=== PATIENT | female | born 1995 | race Caucasian/White ===

== ENCOUNTER → 2021-07-03 08:16 | Outpatient (CLI) | payer OTHER, SELFPAY ==
--- NOTE | 2021-07-03 08:17 | DI.US.S_ITS ---
PROCEDURE: US OB <= 14 WEEKS FETUS INDICATIONS: DATING OUTSIDE/PRIOR DATING DATA: Last menstrual period (LMP): 04/29/2021. LMP-based estimated date of delivery (FRANCISCA): 02/03/2022. First dating scan (date and location): 07/03/2021. Estimated date of delivery (FRANCISCA) from first dating scan: 02/16/2022. The calculations are made using the ultrasound generator FRANCISCA of 02/16/2022. TECHNIQUE: Real-time scanning was performed of the fetus and maternal pelvic organs, with image documentation. Endovaginal scanning was also performed to better visualize the fetus and maternal ovaries. COMPARISON: None. FINDINGS: Embryo: [place]-rump length of 1.2 centimeters corresponding to gestational age of 7 weeks 3 days. Heart rate: 147 beats per minute Maternal organs: Ovaries normal. Probable corpus luteum cyst in the left ovary. Comment: Yolk sac noted. No perigestational hemorrhage identified. IMPRESSION: Single live intrauterine gestation with estimated ultrasound age of 7 weeks 3 days. We strive to produce accurate, complete, and clear reports of imaging services. To assist us in improving patient care, this report was composed using standard report templates and voice recognition software. Therefore, it may contain abnormal punctuation, insertions and/or omissions. Occasional wrong-word or sound-alike substitutions may occur. Though we review the report and make efforts to correct it, we do recommend that the report be read carefully in proper context to recognize any text inaccuracies. Dictated by: Freddie James M.D. on 07/03/2021 at 9:05 Approved by: Freddie James M.D. on 07/03/2021 at 9:06
[2021-07-03 12:26] LABS: Add Manual Diff / Slide Review NO; Basophils Absolute Auto 0 /uL (0-100); Basophils Percent Auto 0.4 % (0-2); Eosinophils Absolute Auto 100 /uL (0-450); Eosinophils Percent Auto 1.6 % (2-4); Hematocrit 31.2 % (36-46); Lymphocytes Absolute Auto 1300 /uL (1100-4500); Mean Corpuscular Hemoglobin 24.4 PG (26-34); Mean Corpuscular Volume 76.3 fL (80-100); Monocytes Absolute Auto 400 /uL (0-900); Monocytes Percent Auto 6.2 % (3-14); Neutrophils Absolute Auto 5000 /uL (1500-7000); Neutrophils Percent Auto 72.8 % (50-75); Platelet Count 324 X10^3/uL (150-400); Red Blood Cell Count 4.09 X10^6/uL (4.0-5.2); Red Cell Distribution Width 17.8 % (11.6-14.8); White Blood Cell Count 6.9 X10^3/uL (4.5-11.0)
[2021-07-03 13:24] LABS: Appearance Urine UA CLEAR; Bilirubin Urine UA NEGATIVE (NEGATIVE); Glucose Urine UA NEGATIVE (Negative); Ketones Urine UA NEGATIVE (NEGATIVE); Leukocyte Esterase Urine UA NEGATIVE (NEGATIVE); Nitrite Urine UA NEGATIVE (Negative); Occult Blood Urine UA NEGATIVE (Negative); Protein Urine UA NEGATIVE (Negative); Specific Gravity Urine UA <=1.005 (1.000-1.035); Urobilinogen Urine UA 0.2 E.U./dL (0.2)
[2021-07-03 13:26] LABS: Color Urine UA Straw; pH Urine UA 6.5 (4.5-8.0)
[2021-07-03 13:55] LABS: Free T4, Direct Thyroxine 1.19 ng/dL (0.78-2.19)
[2021-07-03 14:09] LABS: Thyroid Stimulating Hormone 1.83 uIU/mL (0.47-4.68)
[2021-07-03 14:41] LABS: HCG Quantitative /Beta subunit 48994 mIU/mL
[2021-07-03 18:34] LABS: Hepatitis B Surface Antigen NEGATIVE s/c (NEGATIVE)
[2021-07-03 18:50] LABS: HIV 1 & 2 Ab/Ag 4th Gen Combo NEGATIVE (NEGATIVE); Hep C Virus Ab w/Reflex Quant NEGATIVE s/c (NEGATIVE)
[2021-07-04 09:00] LABS: RPR Screen Non Reactive (Non Reactive)
[2021-07-04 10:41] LABS: Varicella IgG Antibody 1064 index (Immune >165)
== END ==
PROVIDERS: Referring Provider Obstetrics & Gynecology; Visit Provider Obstetrics & Gynecology
DX: Z34.91 Encounter for supervision of normal pregnancy, unspecified, first trimester (principal); Z36.87 Encounter for antenatal screening for uncertain dates; Z3A.01 Less than 8 weeks gestation of pregnancy
CPT/HCPCS: 36415; 76801; 76817; 80055; 81003; 84439; 84443; 84702; 86787; 86803; 86850; 86900; 86901; 87086; 87389

== ENCOUNTER 2021-08-11 10:35 | Emergency (ER) | payer OTHER, SELFPAY ==
[2021-08-11] VITALS (15 sets, daily range): BP systolic 90–108; BP diastolic 54–71; PULSE 64–89; RESP 14–17; TEMP 36.6; O2SAT 97–100; BMI 33.6
--- NOTE | 2021-08-11 10:41 | DI.US.S_ITS ---
PROCEDURE: US OB <= 14 WEEKS FETUS INDICATIONS: AB IN PROGRESS OUTSIDE/PRIOR DATING DATA: Last menstrual period (LMP): April 29, 2021 LMP-based estimated date of delivery (FRANCISCA): February 03, 2022 First dating scan (date and location): July 03, 2020 Estimated date of delivery (FRANCISCA) from first dating scan: February 16, 2022 The calculations are made using the ultrasound FRANCISCA of February 16, 2022. TECHNIQUE: Real-time scanning was performed of the fetus and maternal pelvic organs, with image documentation. Endovaginal scanning was also performed to better visualize the fetus and maternal ovaries. COMPARISON: [facility], , OB <= 14 WEEKS FETUS, 07/03/2021, 8:39. FINDINGS: Embryo: No intrauterine identified in the current study. Heart rate: Not identified. Maternal organs: Probable left corpus luteal cyst. Endometrium is thickened to 6 centimeters. Doppler evaluation demonstrates no definite vascularity in the thickened endometrium which likely represents hemorrhagic clot. IMPRESSION: 1. No intrauterine identified compatible with in progress. 2. Probable hemorrhagic clot in the endometrial cavity. Underlying retained products of conception cannot be excluded without follow-up imaging. Recommend follow-up ultrasound in 4-6 weeks. Dictated by: Teresa Toyn MD, PhD on 08/11/2021 at 10:35 We strive to produce accurate, complete, and clear reports of imaging services. To assist us in improving patient care, this report was composed using standard report templates and voice recognition software. Therefore, it may contain abnormal punctuation, misrecognitions, insertions and/or omissions. Occasional wrong-word or sound-alike substitutions may occur. Though we review the report and make efforts to correct it, we do recommend that the report be read carefully in proper context to recognize any text inaccuracies. Approved by: Teresa Tony MD, PhD on 08/11/2021 at 10:40
[2021-08-11 11:09] LABS: Add Manual Diff / Slide Review NO; Basophils Absolute Auto 0 /uL (0-100); Basophils Percent Auto 0.3 % (0-2); Eosinophils Absolute Auto 100 /uL (0-450); Hematocrit 28.5 % (36-46); Hemoglobin 9.3 g/dL (12.0-16.0); Lymphocytes Absolute Auto 1100 /uL (1100-4500); Lymphocytes Percent Auto 14.5 % (25-40); Mean Corpuscular HGB Conc 32.7 % (30-36); Mean Corpuscular Hemoglobin 25.1 PG (26-34); Mean Corpuscular Volume 76.7 fL (80-100); Monocytes Absolute Auto 400 /uL (0-900); Monocytes Percent Auto 4.6 % (3-14); Neutrophils Absolute Auto 6300 /uL (1500-7000); Neutrophils Percent Auto 79.6 % (50-75); Platelet Count 275 X10^3/uL (150-400); Red Blood Cell Count 3.71 X10^6/uL (4.0-5.2); Red Cell Distribution Width 17.9 % (11.6-14.8); White Blood Cell Count 7.9 X10^3/uL (4.5-11.0)
[2021-08-11 11:20] LABS: BUN Creatinine Ratio 10.8 (6-22); Blood Urea Nitrogen 9 mg/dL (7-17); Calcium 8.8 mg/dL (8.4-10.2); Carbon Dioxide 22 mmol/L (22-32); Chloride 106 mmol/L (98-107); Estimated Glomerular Filt Rate > 60.0 mL/min (>60); Glucose 111 mg/dL (70-100); HEMOLYSIS < 15 (0-50); Potassium 4.1 mmol/L (3.4-5.1); Sodium 135 mmol/L (137-145)
--- NOTE | 2021-08-11 11:30 | ED_ITS ---
HPI - General Adult General Chief complaint: Vaginal Bleeding Stated complaint: having miscarriage Time Seen by Provider: 08/11/21 10:39 Source: patient Mode of arrival: Wheelchair History of Present Illness HPI narrative: Patient is a 25-year-old female at approximately 13 weeks EGA who is here for evaluation of vaginal bleeding. She states she already has a confirmed intrauterine from a first-trimester ultrasound. Has already been seen by OB. This morning started having vaginal bleeding. She states that she did pass the products of conception however is still having quite a bit of discomfort. No fevers. Was also recently diagnosed with hypothyroidism and started on levothyroxine. She has had issues with blood loss anemia in the past after her last delivery requiring a blood transfusion. Related Data Home Medications Medication Instructions Recorded Confirmed ferrous sulfate 325 mg (65 mg 325 mg PO DAILY 06/30/21 07/12/21 iron) tablet (Feosol) levothyroxine 125 mcg capsule 125 mcg PO DAILY 06/30/21 07/12/21 prenat.vits,poonam,xbl-yncl-dupuu 1 tab PO DAILY 06/30/21 07/12/21 sertraline 100 mg tablet (Zoloft) 100 mg PO DAILY 06/30/21 07/12/21 Allergies Allergy/AdvReac Type Severity Reaction Status Date / Time No Known Drug Allergies Allergy Verified 08/11/21 10:49 Review of Systems Constitutional Constitutional: Reports system reviewed and no additional complaints, except as documented Cardiovascular Cardiovascular: Reports system reviewed and no additional complaints, except as documented Gastrointestinal Gastrointestinal: Reports as per HPI and Reports system reviewed and no additional complaints, except as documented Genitourinary Genitourinary: Reports system reviewed and no additional complaints, except as documented and Reports as per HPI Musculoskeletal Musculoskeletal: Reports system reviewed and no additional complaints, except as documented Hematologic/Lymphatic On Anticoagulants: No Patient History Medical History Acne (~2012) Anemia (~2015) Anxiety (~2014) Chicken pox (~2015) Chronic back pain (~2011) Depression (~2014) GERD (gastroesophageal reflux disease) (~2015) Group beta Strep positive (~2019) Heavy menstrual period (~2014) Hemorrhoid (~2019) Hypertension (~2018) Hypothyroid (~05/2021) Irregular menstrual cycle (~2014) Painful menstrual periods (~2014) Preeclampsia (~2019) PTSD (post-traumatic stress disorder) (~2015) Skin candidiasis Tinnitus (~2004) Vertigo (~2015) Yeast infection Surgical History (Updated 07/21/21 @ 20:16 by Dorene Croft) History of placement of ear tubes (~1998) [place] teeth extracted (~2017) Family History (Updated 07/21/21 @ 20:19 by Dorene Croft) Mother History of recurrent miscarriages Anxiety Mental health problem Father Chronic back pain Grandmother Pacemaker Anxiety Depression Grandfather Pacemaker Bone cancer Grandmother Congestive heart failure Kidney disease Family history of recurrent stillbirth History of heart disease Grandfather Family history unknown Sister Anxiety PCOS (polycystic ovarian syndrome) Mental health problem Family/Other Strabismus Seizure Social History marital status: number of children: 1 household members: spouse and children lives independently: Yes caregiver/support person: No pets and animals: No education level: high school occupational status: unemployed ([employer] [facility] [employer] current occupational exposures/hazards: No glenn/baptism: Mosque special glenn needs: No seatbelt use: always do you feel safe at home: Yes Smoking Status: Never smoker second hand exposure: No alcohol intake: former (Pre-: maybe once a week or less, 1-2 drinks.) substance use type: does not use during the past year weight has: increased > 10 lbs (+ 20 lbs r/t thyroid issue. ) well-balanced diet: daily or most days daily servings fruits/ve-4 caffeine: Yes (3 x/week.) Type(s) of exercise: walking and normal ROM and activity (Busy SAH.) frequency: does not exercise Smoking Status: Never smoker alcohol intake frequency: holidays/special occasions only Substance Use Type: does not use Exam Initial Vital Signs Initial Vital Signs: Vital Signs Temperature 97.9 F 08/11/21 10:41 Pulse Rate 70 08/11/21 10:41 Respiratory Rate 14 08/11/21 10:41 Blood Pressure 103/69 08/11/21 10:41 Pulse Oximetry 100 08/11/21 10:41 HENMT Head: normal to inspection and normocephalic Resp Effort & Inspection: normal respiratory effort Auscultation: clear to auscultation bilaterally Cardio Rate: regular rate Rhythm: regular rhythm GI Palpation: soft, No firm and tender (Mild tenderness lower abdomen) Skin General: no rashes or lesions noted Extrem General: normal to inspection and capillary refill normal Psych Appearance: grossly normal and well kempt Course Orders Ordered: ED Orders 08/11/21 10:41 US OB <= 14 weeks fetus Stat 08/11/21 11:00 ABO RH Type Stat Basic Metabolic Panel Stat Complete Blood Count AUTO DIFF Stat HCG Quantitative /Beta subunit Stat 08/11/21 13:18 Hemoglobin and Hematocrit Stat Discontinued Medications Ondansetron HCl (Ondansetron 4 Mg/2 Ml Inj) 4 mg IV NOW ONE Stop: 08/11/21 13:22 Last Admin: 08/11/21 13:25 Dose: 4 mg Documented by: SHINE Vital Signs Vital signs: Vital Signs - 8 hr 08/11/21 10:41 08/11/21 10:46 08/11/21 10:47 Temperature 97.9 F Pulse Rate 70 75 Respiratory Rate 14 Blood Pressure 103/69 103/69 Pulse Oximetry 100 100 100 08/11/21 11:00 08/11/21 11:30 08/11/21 12:00 Temperature Pulse Rate 84 84 64 Respiratory Rate Blood Pressure 108/69 98/54 L 90/60 Pulse Oximetry 100 100 100 08/11/21 12:30 08/11/21 13:00 08/11/21 13:30 Temperature Pulse Rate 72 74 81 Respiratory Rate 17 Blood Pressure 91/57 L 92/57 L 97/60 Pulse Oximetry 99 99 100 08/11/21 13:59 08/11/21 14:06 08/11/21 14:30 Temperature Pulse Rate 89 80 Respiratory Rate 16 Blood Pressure 99/56 L 93/60 Pulse Oximetry 100 08/11/21 14:40 Temperature Pulse Rate 83 Respiratory Rate Blood Pressure Pulse Oximetry 97 Medical Decision Making Lab Data Lab results reviewed: Yes I reviewed the patient's lab results. Result diagrams: 08/11/21 13:18 08/11/21 11:00 Labs: Lab Results 08/11/21 08/11/21 08/11/21 Range/Units 11:00 11:00 11:00 WBC 7.9 (4.5-11.0) X10^3/uL RBC 3.71 L (4.0-5.2) X10^6/uL Hgb 9.3 L (12.0-16.0) g/dL Hct 28.5 L (36-46) % MCV 76.7 L (80-100) fL MCH 25.1 L (26-34) PG MCHC 32.7 (30-36) % RDW 17.9 H (11.6-14.8) % Plt Count 275 (150-400) X10^3/uL Neut % (Auto) 79.6 H (50-75) % Lymph % (Auto) 14.5 L (25-40) % [place] % (Auto) 4.6 (3-14) % Eos % (Auto) 1.0 L (2-4) % Baso % (Auto) 0.3 (0-2) % Neut # (Auto) 6300 (4338-3306) /uL Lymph # (Auto) 1100 (8550-5276) /uL [place] # (Auto) 400 (0-900) /uL Eos # (Auto) 100 (0-450) /uL Baso # (Auto) 0 (0-100) /uL Sodium 135 L (137-145) mmol/L Potassium 4.1 (3.4-5.1) mmol/L Chloride 106 (98-107) mmol/L Carbon Dioxide 22 (22-32) mmol/L BUN 9 (7-17) mg/dL Creatinine 0.83 (0.52-1.04) mg/dL Estimated GFR > 60.0 (>60) mL/min BUN/Creatinine Ratio 10.8 (6-22) Glucose 111 H (70-100) mg/dL Calcium 8.8 (8.4-10.2) mg/dL HCG, Quant 72623 mIU/mL Blood Type A Positive 08/11/21 Range/Units 13:18 WBC (4.5-11.0) X10^3/uL RBC (4.0-5.2) X10^6/uL Hgb 9.1 L (12.0-16.0) g/dL Hct 27.5 L (36-46) % MCV (80-100) fL MCH (26-34) PG MCHC (30-36) % RDW (11.6-14.8) % Plt Count (150-400) X10^3/uL Neut % (Auto) (50-75) % Lymph % (Auto) (25-40) % [place] % (Auto) (3-14) % Eos % (Auto) (2-4) % Baso % (Auto) (0-2) % Neut # (Auto) (1809-1635) /uL Lymph # (Auto) (6231-1118) /uL [place] # (Auto) (0-900) /uL Eos # (Auto) (0-450) /uL Baso # (Auto) (0-100) /uL Sodium (137-145) mmol/L Potassium (3.4-5.1) mmol/L Chloride (98-107) mmol/L Carbon Dioxide (22-32) mmol/L BUN (7-17) mg/dL Creatinine (0.52-1.04) mg/dL Estimated GFR (>60) mL/min BUN/Creatinine Ratio (6-22) Glucose (70-100) mg/dL Calcium (8.4-10.2) mg/dL HCG, Quant mIU/mL Blood Type Imaging Data CT scan - abdomen/pelvis: Radiologist's Impression: [address] [address] Ultrasound Report Signed Patient: Leslee Zhang MR#: [id number] : 1995 Acct:[id number] Age/Sex: 25 / F Date of Service: 08/11/21 Loc: Accession Number: [id number] ?? Procedure: US OB <= 14 weeks fetus Ordering Provider: Jose Hamlin D.O. PROCEDURE:? US OB <= 14 WEEKS FETUS ? INDICATIONS:? AB IN PROGRESS ? OUTSIDE/PRIOR DATING DATA:? Last menstrual period (LMP):? April 29, 2021 LMP-based estimated date of delivery (FRANCISCA):? February 03, 2022 First dating scan (date and location):? July 03, 2020 Estimated date of delivery (FRANCISCA) from first dating scan:? February 16, 2022 The calculations are made using the ultrasound FRANCISCA of February 16, 2022. ? TECHNIQUE:? Real-time scanning was performed of the fetus and maternal pelvic organs, with image documentation.? Endovaginal scanning was also performed to better visualize the fetus and maternal ovaries.? ? COMPARISON:? [facility], US, US OB <= 14 WEEKS FETUS, 07/03/2021, 8:39. ? FINDINGS:? ? Embryo:? No intrauterine identified in the current study.? Heart rate:? Not identified. ? Maternal organs:? Probable left corpus luteal cyst.? Endometrium is thickened to 6 centimeters.? Doppler evaluation demonstrates no definite vascularity in the thickened endometrium which likely represents hemorrhagic clot. ? ? IMPRESSION:? ? 1. No intrauterine identified compatible with in progress. ? 2. Probable hemorrhagic clot in the endometrial cavity.? Underlying retained products of conception cannot be excluded without follow-up imaging.? Recommend follow-up ultrasound in 4-6 weeks.? ? ? Dictated by: Teresa Tony MD, PhD on 08/11/2021 at 10:35 ? We strive to produce accurate, complete, and clear reports of imaging services. To assist us in improving patient care, this report was composed using standard report templates and voice recognition software. Therefore, it may contain abnormal punctuation, misrecognitions, insertions and/or omissions. Occasional wrong-word or sound- alike substitutions may occur. Though we review the report and make efforts to correct it, we do recommend that the report be read carefully in proper context to recognize any text inaccuracies. ? ? ? Approved by: Teresa Tony MD, PhD on 08/11/2021 at 10:40?? MDM Narrative Medical decision making narrative: Patient is Rh positive. No indication for RhoGAM. Repeat H&H 2 hours after initial does show anemia but no change in her presentation. Not tachycardic. She also states that her bleeding has improved somewhat. Ultrasound does show what appears to be hemorrhagic clot in the uterus this does fit her presentation. We will hold on a pelvic exam for now. 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 They would like help with the products of conception. [facility] home did arrived to the emergency department to help with products. Patient was given strict return precautions. She expressed understanding and agreement. Discharge Plan Departure Patient Disposition: Home Clinical Impression: Miscarriage Instructions: DI for Miscarriage Activity Restrictions/Additional Instructions: It would not be unusual for you to continue to have some bleeding especially over the next 24-48 hours. If you get shortness of breath or lightheaded or have bleeding of multiple pads an hour for multiple hours in a row then you do need to return to the emergency department. You will need follow-up with your OB provider. Return to the emergency department for any new or worsening symp toms. Prescriptions: No Action sertraline [Zoloft] 100 mg tablet 100 mg PO DAILY 0RF levothyroxine 125 mcg capsule 125 mcg PO DAILY 0RF prenat.vits,poonam,ihb-mzrb-iefqh Tablet 1 tab PO DAILY 0RF ferrous sulfate [Feosol] 325 mg (65 mg iron) tablet 325 mg PO DAILY 0RF Referrals: Tj Laird MD [Primary Care Provider] -
[2021-08-11 12:02] LABS: HCG Quantitative /Beta subunit 38956 mIU/mL
[2021-08-11 13:25] LABS: Hematocrit 27.5 % (36-46); Hemoglobin 9.1 g/dL (12.0-16.0)
[2021-08-11] MEDS: ONDANSETRON 4 MG/2 ML INJ IV (13:25)
== END 2021-08-11 15:58 | disposition home or self-care (01) ==
PROVIDERS: Emergency Provider Emergency Medicine; PCP Obstetrics & Gynecology
DX: O03.9 Complete or unspecified spontaneous abortion without complication (principal)
CPT/HCPCS: 36415; 76801; 80048; 84702; 85014; 85018; 85025; 86900; 86901; 96374; 99284; J2405

== ENCOUNTER 2021-08-20 13:53 | Emergency (ER) | payer OTHER, SELFPAY ==
[2021-08-20] VITALS (9 sets, daily range): BP systolic 121–149; BP diastolic 65–86; PULSE 80–107; RESP 16; TEMP 37; O2SAT 98–100; BMI 33.6
--- NOTE | 2021-08-20 14:29 | DI.CT.S_ITS ---
PROCEDURE: CT HEAD/BRAIN WO CON INDICATIONS: headache TECHNIQUE: Noncontrast 4.5 mm thick angled axial sections acquired from the foramen magnum to the vertex, with coronal and sagittal reformats. For radiation dose reduction, the following was used: automated exposure control, adjustment of mA and/or kV according to patient size. COMPARISON: None. FINDINGS: Image quality: Excellent. CSF spaces: Basal cisterns are patent. No extra-axial fluid collections. Ventricles are normal in size and shape. Brain: No midline shift. No intracranial masses or hemorrhage. [place]-white matter interface is normal. Skull and face: Calvarium and visualized facial bones are intact, without suspicious lesions. Sinuses: Visualized sinuses and mastoids are clear. IMPRESSION: Unremarkable CT brain Approved by: Roberto Solomon M.D. on 08/20/2021 at 14:31
--- NOTE | 2021-08-20 14:31 | ED_ITS ---
HPI - Dizziness <Fahad Bentley PA-C - Last Filed: 08/20/21 18:16> General Chief Complaint: Dizziness Stated Complaint: low blood pressure Time Seen by Provider: 08/20/21 14:22 Mode of arrival: Family Vehicle History of Present Illness HPI Narrative: Patient is a 25-year-old female presents complaining of headache dizziness upon standing. She was seen in the ED 5 days ago for a miscarriage. She was discharged home and has reported she has been having vaginal bleeding off and on for the past 5 days. She reports that her bleeding is mostly stopped today and mostly just light spotting. She states that when she has her headache it is most severe with standing she has some associated nausea no reported vomiting or diarrhea. No reported fever that neck stiffness congestion cough runny nose. Patient currently having headache and rating her pain at a moderate level. Related Data Home Medications Medication Instructions Recorded Confirmed ferrous sulfate 325 mg (65 mg 325 mg PO DAILY 06/30/21 07/12/21 iron) tablet (Feosol) levothyroxine 125 mcg capsule 125 mcg PO DAILY 06/30/21 07/12/21 prenat.vits,poonam,[id number] 1 tab PO DAILY 06/30/21 07/12/21 sertraline 100 mg tablet (Zoloft) 100 mg PO DAILY 06/30/21 07/12/21 Allergies Allergy/AdvReac Type Severity Reaction Status Date / Time No Known Drug Allergies Allergy Verified 08/20/21 14:05 Review of Systems <Fahad Bentley PA-C - Last Filed: 08/20/21 18:16> Review of Systems ROS Unobtainable: All systems reviewed & are unremarkable except as noted in HPI and below Constitutional Constitutional: Denies chills, Denies fatigue, Denies fever(s), Denies frequent falls, Reports headache(s), Denies lethargy and Denies weakness Eyes Eyes: Denies change in vision, Denies eye discharge, Denies irritation and Denies loss of vision ENT Ears, Nose, Mouth, and Throat: Denies change in voice, Denies dizziness, Reports headache(s), Denies neck pain, Denies sore throat and Denies throat swelling Cardiovascular Cardiovascular: Denies chest pain, Denies irregular heart rhythm, Denies lightheadedness, Denies palpitations, Denies dyspnea, Denies dyspnea on exertion and Denies orthopnea Respiratory Respiratory: Denies cough, Denies dyspnea, Denies dyspnea on exertion and Denies wheezing Gastrointestinal Gastrointestinal: Denies abdominal pain, Denies change in bowel habits, Denies diarrhea, Denies nausea and Denies vomiting Genitourinary Genitourinary: Reports abnormal vaginal bleeding, Denies hematuria, Denies flank pain, Denies urinary incontinence and Denies urinary urgency Musculoskeletal Musculoskeletal: Denies back pain, Denies muscle weakness, Denies neck pain, Denies numbness and Denies tingling Integumentary/Breasts Skin/Breast: Denies pruritus, Denies erythema, Denies rash and Denies wounds Neurologic Neurologic: Denies behavioral changes, Denies confusion, Denies dizziness, Denies frequent falls, Reports headache(s), Denies loss of vision, Denies numbness, Denies tingling and Denies weakness Psychiatric Psychiatric: Denies anxiety, Denies behavioral changes, Denies confusion, Denies depression, Denies homicidal ideation and Denies suicidal ideation Endocrine Endocrine: Denies fatigue, Denies flushing and Denies palpitations Hematologic/Lymphatic Hematologic/Lymphatic: Denies easy bruising Allergic/Immunologic Allergic/Immunologic: Denies urticaria, Denies throat swelling and Denies wheezing Patient History <Fahad Bentley PA-C - Last Filed: 08/20/21 18:16> Medical History Acne (~2012) Anemia (~2015) Anxiety (~2014) Chicken pox (~2015) Chronic back pain (~2011) Depression (~2014) GERD (gastroesophageal reflux disease) (~2015) Group beta Strep positive (~2019) Heavy menstrual period (~2014) Hemorrhoid (~2019) Hypertension (~2018) Hypothyroid (~05/2021) Irregular menstrual cycle (~2014) Painful menstrual periods (~2014) Preeclampsia (~2019) PTSD (post-traumatic stress disorder) (~2015) Skin candidiasis Tinnitus (~2004) Vertigo (~2015) Yeast infection Surgical History History of placement of ear tubes (~1998) [place] teeth extracted (~2017) Family History Mother History of recurrent miscarriages Anxiety Mental health problem Father Chronic back pain Grandmother Pacemaker Anxiety Depression Grandfather Pacemaker Bone cancer Grandmother Congestive heart failure Kidney disease Family history of recurrent stillbirth History of heart disease Grandfather Family history unknown Sister Anxiety PCOS (polycystic ovarian syndrome) Mental health problem Family/Other Strabismus Seizure Social History marital status: number of children: 1 household members: spouse and children lives independently: Yes caregiver/support person: No pets and animals: No education level: high school occupational status: unemployed ([employer] current occupational exposures/hazards: No glenn/jewish: [employer] special glenn needs: No seatbelt use: always do you feel safe at home: Yes Smoking Status: Never smoker second hand exposure: No alcohol intake: former (Pre-: maybe once a week or less, 1-2 drinks.) substance use type: does not use during the past year weight has: increased > 10 lbs (+ 20 lbs r/t thyroid issue. ) well-balanced diet: daily or most days daily servings fruits/ve-4 caffeine: Yes (3 x/week.) Type(s) of exercise: walking and normal ROM and activity (Busy [facility].) frequency: does not exercise Smoking Status: Never smoker alcohol intake frequency: holidays/special occasions only Substance Use Type: does not use Exam <Fahad Bentley PA-C - Last Filed: 08/20/21 18:16> Initial Vital Signs Initial Vital Signs: Vital Signs Pulse Oximetry 98 08/20/21 13:59 Const General: cooperative, healthy appearing, comfortable and well developed Nutritional Appearance: average body habitus and well nourished Orientation: Orientation [facility] Head: normal to inspection, normocephalic and atraumatic Ears: hearing grossly normal bilaterally, external ears normal and TM's normal bilaterally Nose: external nose normal, nares normal and nasal mucous membranes and turbinates normal Face and sinus: normal facial exam and face symmetric Mouth: oral mucosae normal Teeth and gingiva: dentition normal Eyes General: appearance normal, both eyes and all related structures Pupils: PERRL Neck Neck: normal visual inspection, full ROM and no meningeal signs Resp Effort & Inspection: normal respiratory effort and able to speak in complete sentences Auscultation: clear to auscultation bilaterally Neuro General: patient alert, patient awake and patient oriented x3 Cranial Nerves: CN's II-XI intact bilaterally Cognition: normal cognition Speech: speech normal Gait: normal gait Motor: muscle tone normal throughout and strength 5/5 throughout Sensory Exam: no sensory deficits noted <Chioma Collins MD - Last Filed: 08/21/21 08:29> Initial Vital Signs Initial Vital Signs: Vital Signs Pulse Oximetry 98 08/20/21 13:59 Course <Fahad Bentley PA-C - Last Filed: 08/20/21 18:16> Orders Ordered: Discontinued Medications Sodium Chloride (Normal Saline 0.9%) 1,000 mls @ 1,000 mls/hr IV BOLUS ONE Stop: 08/20/21 15:28 Last Infusion: 08/20/21 17:57 Dose: 0 mls/hr Documented by: Admin: 08/20/21 16:14 Dose: 1,000 mls/hr Documented by: CELIA Reevaluation(s) Reevaluation #1: Patient responded well to IV fluids. She states that her headache has decreased down to a 4/10 and she is not as dizzy as she was before with standing she did urinate while here. Vital signs remained stable Vital Signs Vital signs: Vital Signs - 8 hr 08/20/21 13:59 08/20/21 14:00 08/20/21 14:01 Temperature 98.6 F Pulse Rate 81 80 Respiratory Rate 16 Blood Pressure 121/72 121/72 Pulse Oximetry 98 98 98 08/20/21 14:05 08/20/21 14:30 08/20/21 14:41 Temperature Pulse Rate 107 H 83 94 H Respiratory Rate Blood Pressure 149/86 H 138/85 121/65 Pulse Oximetry 100 100 100 <Chioma Collins MD - Last Filed: 08/21/21 08:29> Orders Ordered: Discontinued Medications Sodium Chloride (Normal Saline 0.9%) 1,000 mls @ 1,000 mls/hr IV BOLUS ONE Stop: 08/20/21 15:28 Last Infusion: 08/20/21 17:57 Dose: 0 mls/hr Documented by: Admin: 08/20/21 16:14 Dose: 1,000 mls/hr Documented by: CELIA Vital Signs Vital signs: Vital Signs - 8 hr 08/20/21 13:59 08/20/21 14:00 08/20/21 14:01 Temperature 98.6 F Pulse Rate 81 80 Respiratory Rate 16 Blood Pressure 121/72 121/72 Pulse Oximetry 98 98 98 08/20/21 14:05 08/20/21 14:30 08/20/21 14:41 Temperature Pulse Rate 107 H 83 94 H Respiratory Rate Blood Pressure 149/86 H 138/85 121/65 Pulse Oximetry 100 100 100 MDM - Dizziness <Fahad Bentley PA-C - Last Filed: 08/20/21 18:16> Differential Diagnosis Differential diagnosis: Likely orthostatic hypotension Lab Data Result diagrams: 08/20/21 15:01 08/20/21 15:01 Labs: Lab Results 08/20/21 08/20/21 08/20/21 Range/Units 15:01 15:01 18:07 WBC 6.4 (4.5-11.0) X10^3/uL RBC 3.13 L (4.0-5.2) X10^6/uL Hgb 7.8 L (12.0-16.0) g/dL Hct 23.8 L (36-46) % MCV 76.0 L (80-100) fL MCH 25.0 L (26-34) PG MCHC 33.0 (30-36) % RDW 17.3 H (11.6-14.8) % Plt Count 400 (150-400) X10^3/uL Neut % (Auto) 66.7 (50-75) % Lymph % (Auto) 24.3 L (25-40) % [place] % (Auto) 6.6 (3-14) % Eos % (Auto) 1.6 L (2-4) % Baso % (Auto) 0.8 (0-2) % Neut # (Auto) 4300 (5486-1066) /uL Lymph # (Auto) 1600 (4001-9860) /uL [place] # (Auto) 400 (0-900) /uL Eos # (Auto) 100 (0-450) /uL Baso # (Auto) 100 (0-100) /uL Sodium 137 (137-145) mmol/L Potassium 4.7 (3.4-5.1) mmol/L Chloride 104 (98-107) mmol/L Carbon Dioxide 27 (22-32) mmol/L BUN 13 (7-17) mg/dL Creatinine 0.88 (0.52-1.04) mg/dL Estimated GFR > 60.0 (>60) mL/min BUN/Creatinine Ratio 14.8 (6-22) Glucose 95 (70-100) mg/dL Calcium 9.8 (8.4-10.2) mg/dL Total Bilirubin 0.2 (0.2-1.3) mg/dL AST 41 H (14-36) IU/L ALT 34 (<35) IU/L Alkaline Phosphatase 75 (38-126) U/L Total Protein 7.4 (6.3-8.2) g/dL Albumin 4.2 (3.5-5.0) g/dL Globulin 3.2 (1.7-4.1) g/dL Albumin/Globulin Ratio 1.3 (1.0-2.8) Urine Color Yellow Urine Appearance Sl cloudy Urine pH 5.5 (4.5-8.0) Ur Specific Jolon <=1.005 (1.000-1.035) Urine Protein Negative (Negative) Urine Glucose (UA) Negative (Negative) g/dL Urine Ketones Negative (NEGATIVE) Urine Occult Blood 2+ H (Negative) Urine Nitrate Negative (Negative) Urine Bilirubin Negative (NEGATIVE) Urine Urobilinogen 0.2 (0.2) E.U./dL Ur Leukocyte Esterase 3+ H (NEGATIVE) Urine RBC 1-5/hpf (0-5/HPF) Urine WBC 10-30/hpf H (0-5/HPF) Ur Squamous Epith Cells 1-5 /hpf (0-5/HPF) Urine Bacteria Moderate (10-30) H (None) Ur Culture Indicated? Specimen cultured Point of Care Testing Test Results Positive Urine Dip Bedside Urine Glucose Negative Bedside Urine Bilirubin - Negative Bedside Urine Ketone - Negative Urine Specific Jolon 1.015 Bedside Urine Occult Blood + Bedside Urine pH 6.0 Bedside Urine Protein - Negative Bedside Urine Urobilinogen - Negative Bedside Urine Nitrite - Negative Bedside Urine Leukocytes + [address] scan - head: Radiologist's Impression: PROCEDURE:? CT HEAD/BRAIN WO CON ? INDICATIONS:? headache ? TECHNIQUE:? Noncontrast 4.5 mm thick angled axial sections acquired from the foramen magnum to the vertex, with coronal and sagittal reformats.? For radiation dose reduction, the following was used:? automated exposure control, adjustment of mA and/or kV according to patient size.? ? COMPARISON:? None. ? FINDINGS:? Image quality:? Excellent.? ? CSF spaces:? Basal cisterns are patent.? No extra-axial fluid collections.? Ventricles are normal in size and shape.? ? Brain:? No midline shift.? No intracranial masses or hemorrhage.? Ruiz-white matter interface is normal.? ? Skull and face:? Calvarium and visualized facial bones are intact, without suspicious lesions.? ? Sinuses:? Visualized sinuses and mastoids are clear.? ? IMPRESSION:? Unremarkable CT brain MDM Narrative Medical decision making narrative: Patient was seen today for headache and dizziness. Patient has been having vaginal bleeding for the past week as result of a miscarriage. The patient reports today that only mild spotting and the blood loss seems that has resolved. Patient was given IV fluids and responded well patient's CBC showed a hemoglobin of 7.9. Vital signs remained stable without any significant change. Patient is taking an iron supplement. Patient will be discharged home and told to follow-up with PCP. <Chioma Collins MD - Last Filed: 08/21/21 08:29> Lab Data Labs: Lab Results 08/20/21 08/20/21 08/20/21 Range/Units 15:01 15:01 18:07 WBC 6.4 (4.5-11.0) X10^3/uL RBC 3.13 L (4.0-5.2) X10^6/uL Hgb 7.8 L (12.0-16.0) g/dL Hct 23.8 L (36-46) % MCV 76.0 L (80-100) fL MCH 25.0 L (26-34) PG MCHC 33.0 (30-36) % RDW 17.3 H (11.6-14.8) % Plt Count 400 (150-400) X10^3/uL Neut % (Auto) 66.7 (50-75) % Lymph % (Auto) 24.3 L (25-40) % [place] % (Auto) 6.6 (3-14) % Eos % (Auto) 1.6 L (2-4) % Baso % (Auto) 0.8 (0-2) % Neut # (Auto) 4300 (5927-5632) /uL Lymph # (Auto) 1600 (4897-4645) /uL [place] # (Auto) 400 (0-900) /uL Eos # (Auto) 100 (0-450) /uL Baso # (Auto) 100 (0-100) /uL Sodium 137 (137-145) mmol/L Potassium 4.7 (3.4-5.1) mmol/L Chloride 104 (98-107) mmol/L Carbon Dioxide 27 (22-32) mmol/L BUN 13 (7-17) mg/dL Creatinine 0.88 (0.52-1.04) mg/dL Estimated GFR > 60.0 (>60) mL/min BUN/Creatinine Ratio 14.8 (6-22) Glucose 95 (70-100) mg/dL Calcium 9.8 (8.4-10.2) mg/dL Total Bilirubin 0.2 (0.2-1.3) mg/dL AST 41 H (14-36) IU/L ALT 34 (<35) IU/L Alkaline Phosphatase 75 (38-126) U/L Total Protein 7.4 (6.3-8.2) g/dL Albumin 4.2 (3.5-5.0) g/dL Globulin 3.2 (1.7-4.1) g/dL Albumin/Globulin Ratio 1.3 (1.0-2.8) Urine Color Yellow Urine Appearance Sl cloudy Urine pH 5.5 (4.5-8.0) Ur Specific Jolon <=1.005 (1.000-1.035) Urine Protein Negative (Negative) Urine Glucose (UA) Negative (Negative) g/dL Urine Ketones Negative (NEGATIVE) Urine Occult Blood 2+ H (Negative) Urine Nitrate Negative (Negative) Urine Bilirubin Negative (NEGATIVE) Urine Urobilinogen 0.2 (0.2) E.U./dL Ur Leukocyte Esterase 3+ H (NEGATIVE) Urine RBC 1-5/hpf (0-5/HPF) Urine WBC 10-30/hpf H (0-5/HPF) Ur Squamous Epith Cells 1-5 /hpf (0-5/HPF) Urine Bacteria Moderate (10-30) H (None) Ur Culture Indicated? Specimen cultured Point of Care Testing Test Results Positive Urine Dip Bedside Urine Glucose Negative Bedside Urine Bilirubin - Negative Bedside Urine Ketone - Negative Urine Specific Jolon 1.015 Bedside Urine Occult Blood + Bedside Urine pH 6.0 Bedside Urine Protein - Negative Bedside Urine Urobilinogen - Negative Bedside Urine Nitrite - Negative Bedside Urine Leukocytes + 70 Esterase Discharge Plan Departure Patient Disposition: Home Clinical Impression: Acute blood loss anemia, Acute dehydration, Headache Instructions: Anemia, Orthostatic Hypotension Activity Restrictions/Additional Instructions: You were seen today for your headache and dizziness. Your blood count revealed that your blood levels are significantly low secondary to your ongoing vaginal bleeding from this last week. I would recommend that you increase your fluid intake for the next few days and monitor the progression of your vaginal bleeding. If her bleeding increases or becomes more severe he should return to the emergency room immediately. He should consider having your blood levels checked in the next 3 months with her primary care doctor to make sure you do not have an underlying anemia that needs to be treated. Prescriptions: No Action sertraline [Zoloft] 100 mg tablet 100 mg PO DAILY 0RF levothyroxine 125 mcg capsule 125 mcg PO DAILY 0RF prenat.vits,poonam,[id number] Tablet 1 tab PO DAILY 0RF ferrous sulfate [Feosol] 325 mg (65 mg iron) tablet 325 mg PO DAILY 0RF Referrals: Tj Laird MD [Primary Care Provider] - <Chioma Collins MD - Last Filed: 08/21/21 08:29> Cosign ED Attending Ricature Attestation: I was immediately available in the department for consultation throughout this patient's visit. I agree with documentation as above. Chioma Collins MD
[2021-08-20 15:08] LABS: Add Manual Diff / Slide Review NO; Basophils Absolute Auto 100 /uL (0-100); Basophils Percent Auto 0.8 % (0-2); Eosinophils Absolute Auto 100 /uL (0-450); Eosinophils Percent Auto 1.6 % (2-4); Hematocrit 23.8 % (36-46); Hemoglobin 7.8 g/dL (12.0-16.0); Lymphocytes Absolute Auto 1600 /uL (1100-4500); Lymphocytes Percent Auto 24.3 % (25-40); Monocytes Absolute Auto 400 /uL (0-900); Monocytes Percent Auto 6.6 % (3-14); Neutrophils Absolute Auto 4300 /uL (1500-7000); Neutrophils Percent Auto 66.7 % (50-75); Platelet Count 400 X10^3/uL (150-400); Red Blood Cell Count 3.13 X10^6/uL (4.0-5.2); Red Cell Distribution Width 17.3 % (11.6-14.8); White Blood Cell Count 6.4 X10^3/uL (4.5-11.0)
[2021-08-20 15:27] LABS: Alanine Aminotransferase 34 IU/L (<35); Albumin 4.2 g/dL (3.5-5.0); Albumin Globulin Ratio 1.3 (1.0-2.8); Alkaline Phosphatase 75 U/L (38-126); Aspartate Aminotransferase 41 IU/L (14-36); BUN Creatinine Ratio 14.8 (6-22); Bilirubin Total 0.2 mg/dL (0.2-1.3); Blood Urea Nitrogen 13 mg/dL (7-17); Calcium 9.8 mg/dL (8.4-10.2); Carbon Dioxide 27 mmol/L (22-32); Chloride 104 mmol/L (98-107); Estimated Glomerular Filt Rate > 60.0 mL/min (>60); Globulin 3.2 g/dL (1.7-4.1); Glucose 95 mg/dL (70-100); HEMOLYSIS < 15 (0-50); Potassium 4.7 mmol/L (3.4-5.1); Sodium 137 mmol/L (137-145); Total Protein 7.4 g/dL (6.3-8.2)
[2021-08-20] MEDS: SODIUM CHLORIDE 0.9% 1,000 ML 1000 ML IV (16:14)
[2021-08-20 18:16] LABS: Appearance Urine UA SL CLOUDY; Bilirubin Urine UA NEGATIVE (NEGATIVE); Color Urine UA YELLOW; Glucose Urine UA NEGATIVE (Negative); Ketones Urine UA NEGATIVE (NEGATIVE); Leukocyte Esterase Urine UA 3+ (NEGATIVE); Nitrite Urine UA NEGATIVE (Negative); Occult Blood Urine UA 2+ (Negative); Protein Urine UA NEGATIVE (Negative); Specific Gravity Urine UA <=1.005 (1.000-1.035); Urobilinogen Urine UA 0.2 E.U./dL (0.2)
[2021-08-20 18:18] LABS: pH Urine UA 5.5 (4.5-8.0)
[2021-08-20 18:23] LABS: Bacteria Urine Moderate (10-30); Culture Indicated Urine Specimen Cultured; RBC Urine 1-5/HPF (0-5/HPF); Squamous Epithelial Cell Urine 1-5 /HPF (0-5/HPF); WBC Urine 10-30/HPF (0-5/HPF)
== END 2021-08-20 18:26 | disposition home or self-care (01) ==
PROVIDERS: Emergency Provider Physician Assistant; PCP Obstetrics & Gynecology
DX: D50.0 Iron deficiency anemia secondary to blood loss (chronic) (principal); E86.0 Dehydration; R51.9 Headache, unspecified
CPT/HCPCS: 70450; 80053; 81001; 81003; 81025; 85025; 87086; 96360; 96361; 99283; 99284

== ENCOUNTER → 2022-08-26 11:33 | Outpatient (CLI) | payer OTHER, SELFPAY ==
--- NOTE | 2022-08-26 | DI.MRI.S_ITS ---
PROCEDURE: MR LUMBAR SPINE WO CON INDICATIONS: lower back pains TECHNIQUE: Noncontrast sagittal T1 spin echo and T2 fast echo, sagittal STIR, and T2 fast spin echo through the lumbar spine. In cases with scoliosis, additional coronal T2 fast spin echo may be performed. COMPARISON: None. FINDINGS: Image quality: Excellent. Alignment and Curvature: There is normal bony alignment. Bone Marrow: Marrow is of normal overall signal. No acute vertebral body compression fractures. Spinal Cord: Conus medullaris terminates at the L1 level. Visualized cord demonstrates normal signal and size. Paraspinous Soft Tissues: No paravertebral masses. Discs: [id number] desiccation is present at L4. T12-L1: No disc bulge, spinal stenosis or foraminal narrowing. L1-L2: Minimal disc bulge without spinal stenosis or foraminal narrowing. Epidural lipomatosis is present. L2-L3: Minimal disc bulge without spinal stenosis or foraminal narrowing. Epidural lipomatosis is present. L3-L4: Minimal disc bulge without spinal stenosis or foraminal narrowing. Epidural lipomatosis is present. L4-L5: Mild disc bulge with mild spinal stenosis. Minimal bilateral foraminal narrowing with mild facet hypertrophy. Epidural lipomatosis is present. L5-S1: Minimal disc bulge without spinal stenosis or foraminal narrowing. IMPRESSION: Mild disc bulge with mild spinal stenosis as well as minimal bilateral foraminal narrowing at L4-5. Multilevel epidural lipomatosis is present. Dictated by: Susannah Baker M.D. on 08/27/2022 at 9:14 Approved by: Susannah Baker M.D. on 08/27/2022 at 9:16
== END ==
PROVIDERS: PCP Student in an Organized Health Care Education/Training Program; Referring Provider Student in an Organized Health Care Education/Training Program; Visit Provider Student in an Organized Health Care Education/Training Program
DX: M51.36 Other intervertebral disc degeneration, lumbar region (principal); M48.061 Spinal stenosis, lumbar region without neurogenic claudication; M54.50 Low back pain, unspecified; R20.0 Anesthesia of skin
CPT/HCPCS: 72148

== ENCOUNTER → 2022-10-04 09:07 | Outpatient (CLI) | payer OTHER, SELFPAY ==
--- NOTE | 2022-10-04 | DI.US.S_ITS ---
ULTRASOUND OF RIGHT BREAST: 10/04/2022 CLINICAL: Right breast lump. No prior exams were available for comparison. Color flow and Doppler ultrasound of the right breast were performed. Ruiz scale images of the real-time examination were reviewed. There is a benign area of fibroglandular tissue in the right breast at 11 o'clock posterior depth. IMPRESSION: BENIGN There is no sonographic evidence of malignancy. The area of fibroglandular tissue in the right breast is benign. Recommend annual mammogram beginning at age 40 or per ACR guidelines. This exam was interpreted at Station ID: [id number]. Electronically Signed By: Gabe Carlos M.D. acr/:10/04/2022 10:09:25 letter sent: Clinical Evaluation Ultrasound BI-RADS: 2 Benign
== END ==
PROVIDERS: PCP Student in an Organized Health Care Education/Training Program; Referring Provider Student in an Organized Health Care Education/Training Program; Visit Provider Student in an Organized Health Care Education/Training Program
DX: N63.10 Unspecified lump in the right breast, unspecified quadrant (principal)
CPT/HCPCS: 76642